=== PATIENT | male | born 1955 | race Caucasian/White ===

== ENCOUNTER → 2018-05-12 | Outpatient (CLI) | payer OTHER | END | disposition home or self-care (01) | LOC: CFH 14:33 | PROVIDERS: ATTEND Internal Medicine Cardiovascular Disease | DX: I48.0 Paroxysmal atrial fibrillation (principal); I71.2 Thoracic aortic aneurysm, without rupture; Q21.1 Atrial septal defect | CPT/HCPCS: C8910 ==